=== PATIENT | male | born 1945 | race Hispanic/Latino ===

== ENCOUNTER 2023-01-23 19:19 | Emergency (ER) | payer BC, MEDICARE ==
[~2023-01-23] VITALS: Ht 175.3 cm; Wt 101.2 kg
[~2023-01-23 19:19] MED LIST: ALBU8.5H8 IH; ASPI-1146 PO; BUDE10.2 IH; CANA300T PO; DILT240C81 PO; FLUT16H NASAL; FURO40TA5 PO; METF-446 PO; QUIN40TA37 PO; RANI300T4 PO; ROSU20TA23 PO; SAXA5TAB PO; TADA5TAB PO
[2023-01-23] MEDS ORDERED: MORPHINE 2 MG SYG IVP ONE (20:30)
[2023-01-23 20:52] LABS: POTASSIUM 4.5 mmol/L (3.5-5.1)
[2023-01-23 20:59] LABS: ALBUMIN 3.5 g/dL (3.5-5.0); TOTAL PROTEIN, SERUM 7.4 g/dL (6.0-8.3)
[2023-01-23] MEDS ORDERED: IPRATROPIUM/ALBUTEROL SULFATE 3 ML SOLUTION IH ONE (21:00)
[2023-01-23] MEDS ORDERED: IPRATROPIUM 0.5 MG/2.5 ML INH IH ONE (21:06)
[2023-01-23] MEDS ORDERED: ALBUTEROL 0.083% 2.5 MG/3 ML INH IH ONE (21:06)
[2023-01-23] MEDS ORDERED: IOHEXOL 350 MG/ML 100ML INFUS..BTL IV ONE (21:45)
[2023-01-23] MEDS ORDERED: IBUP-1493 PO (22:17)
[2023-01-23] MEDS ORDERED: TRAM50TA4 PO (22:17)
[2023-01-23 22:23] VITALS: BP 138/70
== END 2023-01-23 22:32 | disposition home or self-care (01) ==
LOC: EDH 19:19
DX: S42.292A Other displaced fracture of upper end of left humerus, initial encounter for closed fracture (principal); Z79.51 Long term (current) use of inhaled steroids; Z79.82 Long term (current) use of aspirin; Z79.84 Long term (current) use of oral hypoglycemic drugs; Z79.899 Other long term (current) drug therapy; W01.10XA Fall on same level from slipping, tripping and stumbling with subsequent striking against unspecified object, initial encounter; Y93.01 Activity, walking, marching and hiking; Y92.89 Other specified places as the place of occurrence of the external cause; Y99.8 Other external cause status
CPT/HCPCS: 99285; 70450; 96374; 29105; 80053; 36415; 73060; 73030; 72125; 71260; 94640; J2270; Q9967